=== PATIENT | male | born 1955 | race American Indian/Alaskan Native ===

== ENCOUNTER 2017-01-15 03:40 | Emergency (ER) | payer SELFPAY ==
--- NOTE | 2017-01-15 04:58 | C.PDOC ---
History Of Present Illness 61 year old male brought to ER by police after he was found sleeping intoxicated at a lightrail stop. Patient admits he is a frequent drinking and drinks almost daily. Denies any fall, trauma, or physical complaints. Time Seen by Provider: 01/15/17 03:58 Chief Complaint (Nursing): Substance Abuse History Per: Patient History/Exam Limitations: no limitations Onset/Duration Of Symptoms: Hrs Current Symptoms Are (Timing): Still Present Suicide/Self Injury Attempted (Context): None Modifying Factor(s): Alcohol Associated Symptoms: denies: Depression, Suicidal Thoughts, Suicidal Plan Involuntary Hold By: None Recent travel outside of the [place]: No Past Medical History Reviewed: Historical Data, Nursing Documentation, Vital Signs Vital Signs: Last Vital Signs Temp 98.5 F 01/15/17 06:18 Pulse 89 01/15/17 06:18 Resp 18 01/15/17 06:18 BP 121/74 01/15/17 06:18 Pulse Ox 94 L 01/15/17 06:29 - Medical History PMH: No Chronic Diseases Surgical History: No Surg Hx Family History: States: Unknown Family Hx - Social History Hx Alcohol Use: Yes Hx Substance Use: No Review Of Systems Constitutional: Negative for: Fever, Chills Gastrointestinal: Negative for: Nausea, Vomiting, Diarrhea Physical Exam - Physical Exam Appears: Non-toxic, No Acute Distress, Other (ETOH on breath, speaking in complete sentences) Skin: Normal Color, Warm, Dry Head: Atraumatic, Normacephalic Oral Mucosa: Moist Chest: Symmetrical, No Tenderness Cardiovascular: Rhythm Regular, No Murmur Respiratory: Normal Breath Sounds, No Rales, No Rhonchi, No Wheezing Gastrointestinal/Abdominal: Soft, No Tenderness Neurological/Psych: Oriented x3, Normal Speech, Normal Cognition ED Course And Treatment O2 Sat by Pulse Oximetry: 94 (Room air) Pulse Ox Interpretation: Normal Progress Note: pot alert and awake to be dishcharged after eating;. Reevaluation Time: 06:28 Reassessment Condition: Improved Medical Decision Making Medical Decision Making: pt easily aroused from sleep;speaks in full sentences and has steady gait. will d/c with med clinic and detox recommendation Disposition Counseled Patient/Family Regarding: Diagnosis, Need For Followup - Disposition Referrals: [facility] at [facility] [Outside] Disposition: HOME/ ROUTINE Disposition Time: 06:25 Condition: IMPROVED Additional Instructions: Please follow up with medical clinic. Please consider alcohol detox program. Return to ER for any worsening symptoms., Instructions: Alcohol Intoxication (ED), Abuse of Alcohol (ED) Forms: General Discharge Instructions - Clinical Impression Clinical Impression: Alcohol abuse - Scribe Statement The provider has reviewed the documentation as recorded by the Scribe Justin Acevedo All medical record entries made by the Marianaibe were at my direction and personally dictated by me. I have reviewed the chart and agree that the record accurately reflects my personal performance of the history, physical exam, medical decision making, and the department course for this patient. I have also personally directed, reviewed, and agree with the discharge instructions and disposition.
[2017-01-15 06:19] VITALS: BP 121/74; PULSE 89; RESP 18; TEMP 98.5
[2017-01-15 06:26] VITALS: O2SAT 94
== END 2017-01-15 06:50 | disposition home or self-care (01) ==
LOC: C.ER 03:40
DX: F10.10 Alcohol abuse, uncomplicated (principal); Y90.9 Presence of alcohol in blood, level not specified

== ENCOUNTER 2017-01-25 19:39 | Emergency (ER) | payer MEDICARE ==
[2017-01-25 19:52] VITALS: RESP 16
--- NOTE | 2017-01-25 22:47 | C.PDOC ---
History Of Present Illness 61 year old male BIBA for public intoxication. Denies physical complaints at this time. Time Seen by Provider: 01/25/17 21:10 Chief Complaint (Nursing): Substance Abuse History Per: Patient History/Exam Limitations: no limitations Onset/Duration Of Symptoms: Hrs Current Symptoms Are (Timing): Still Present Suicide/Self Injury Attempted (Context): None Modifying Factor(s): Alcohol Associated Symptoms: denies: Depression, Suicidal Thoughts, Suicidal Plan Involuntary Hold By: None Recent travel outside of the [place]: No Past Medical History Reviewed: Historical Data, Nursing Documentation, Vital Signs Vital Signs: Last Vital Signs Temp 98.4 F 01/25/17 22:44 Pulse 92 H 01/25/17 22:44 Resp 16 01/25/17 22:44 BP 117/69 01/25/17 22:44 Pulse Ox 94 L 01/25/17 22:49 - Medical History PMH: No Chronic Diseases Surgical History: No Surg Hx Family History: States: Unknown Family Hx - Social History Hx Alcohol Use: Yes Hx Substance Use: No Review Of Systems Constitutional: Negative for: Fever, Chills Gastrointestinal: Negative for: Nausea, Vomiting, Diarrhea Neurological: Negative for: Weakness, Numbness Physical Exam - Physical Exam Appears: Non-toxic, No Acute Distress, Other (ETOH on breath) Skin: Normal Color, Warm, Dry Head: Atraumatic, Normacephalic Oral Mucosa: Moist Chest: Symmetrical, No Tenderness Cardiovascular: Rhythm Regular, No Murmur Respiratory: Normal Breath Sounds, No Rales, No Rhonchi, No Wheezing Gastrointestinal/Abdominal: Soft, No Tenderness Neurological/Psych: Oriented x3, Normal Speech, Normal Cognition ED Course And Treatment O2 Sat by Pulse Oximetry: 94 Reevaluation Time: 00:17 Reassessment Condition: Improved (sleeping comfortably, no distress) Medical Decision Making Medical Decision Making: admitted etoh abuse Disposition - Disposition Disposition Time: 01:00 Condition: GOOD Forms: [facility] (German) - Clinical Impression Clinical Impression: Alcohol abuse - Scribe Statement The provider has reviewed the documentation as recorded by the Scribe Justin Acevedo All medical record entries made by the Scribe were at my direction and personally dictated by me. I have reviewed the chart and agree that the record accurately reflects my personal performance of the history, physical exam, medical decision making, and the department course for this patient. I have also personally directed, reviewed, and agree with the discharge instructions and disposition. Physician Patient Turnover Patient Signed Over To: Asad Patrick Handoff Comments: dispo in AM when sober
[2017-01-26 05:49] VITALS: BP 129/83; PULSE 85; TEMP 98.3; O2SAT 96
== END 2017-01-26 06:12 | disposition home or self-care (01) ==
LOC: C.ER 19:39
DX: F10.10 Alcohol abuse, uncomplicated (principal)

== ENCOUNTER 2018-04-18 00:43 | Emergency (ER) | payer MEDICARE ==
[2018-04-18 00:57] VITALS: RESP 18
--- NOTE | 2018-04-18 01:52 | C.PDOC ---
History Of Present Illness 63 year old male brought in via EMS for acute ETOH intoxication. Patient offers no complaints at this time. Time Seen by Provider: 04/18/18 01:07 Chief Complaint (Nursing): Substance Abuse History Per: Patient, EMS History/Exam Limitations: no limitations Onset/Duration Of Symptoms: Hrs Current Symptoms Are (Timing): Still Present Suicide/Self Injury Attempted (Context): None Modifying Factor(s): Alcohol Associated Symptoms: denies: Depression, Suicidal Thoughts Involuntary Hold By: None Recent travel outside of the [place]: No Past Medical History Reviewed: Historical Data, Nursing Documentation, Vital Signs Vital Signs: Last Vital Signs Temp 98.4 F 04/18/18 00:53 Pulse 80 04/18/18 00:53 Resp 18 04/18/18 00:53 BP 144/94 H 04/18/18 00:53 Pulse Ox 98 04/18/18 00:53 - Medical History PMH: Dementia Denies: Diabetes, Hepatitis, HIV, HTN, Seizures, Sexually Transmitted Disease Family History: States: Unknown Family Hx - Social History Hx Alcohol Use: Yes Hx Substance Use: No - Immunization History Hx Tetanus Toxoid Vaccination: No Hx Influenza Vaccination: No Hx Pneumococcal Vaccination: No Review Of Systems Constitutional: Negative for: Fever, Chills Cardiovascular: Negative for: Chest Pain, Palpitations Respiratory: Negative for: Cough, Shortness of Breath Gastrointestinal: Negative for: Nausea, Vomiting Genitourinary: Negative for: Dysuria, Hematuria Neurological: Negative for: Weakness, Numbness Physical Exam - Physical Exam Appears: Non-toxic, Other (ETOH on breath, no sign of injury) Skin: Normal Color, Warm, Dry Head: Atraumatic, Normacephalic Eye(s): bilateral: Normal Inspection Oral Mucosa: Moist Neck: Normal, Supple Chest: Symmetrical, No Tenderness Cardiovascular: Rhythm Regular Respiratory: Normal Breath Sounds, No Rales, No Rhonchi, No Wheezing Gastrointestinal/Abdominal: Soft, No Tenderness Extremity: Other (Moves all extremities) Neurological/Psych: Oriented x3, Normal Speech Gait: Unable To Assess ED Course And Treatment O2 Sat by Pulse Oximetry: 98 (Room air) Pulse Ox Interpretation: Normal Progress Note: Patient with acute ETOH intoxication, will due frequent neuro checks and discharge when clinically sober. 6am:On reevaluation, patient is ambulatory in the ER with steady gait, vitals are stable, will discharge home. Reassessment Condition: Improved Disposition - Disposition Referrals: Rogers Delgado MD [Primary Care Provider] - Disposition: HOME/ ROUTINE Disposition Time: 06:05 Condition: STABLE Instructions: Alcohol Use - When Is Drinking a Problem? 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 - Scribe Statement The provider has reviewed the documentation as recorded by the Scribe Justin Acevedo All medical record entries made by the Marianaibyasir were at my direction and personally dictated by me. I have reviewed the chart and agree that the record accurately reflects my personal performance of the history, physical exam, medical decision making, and the department course for this patient. I have also personally directed, reviewed, and agree with the discharge instructions and disposition.
[2018-04-18 05:42] VITALS: BP 122/82; PULSE 72; TEMP 98.8
[2018-04-18 06:04] VITALS: O2SAT 98
== END 2018-04-18 06:15 | disposition home or self-care (01) ==
LOC: SUPCPDRO 00:43 → C.ER 00:43
DX: F10.10 Alcohol abuse, uncomplicated (principal)

== ENCOUNTER 2018-06-09 00:43 | Emergency (ER) | payer MEDICARE ==
[2018-06-09 01:07] VITALS: RESP 16
--- NOTE | 2018-06-09 01:32 | C.PDOC ---
History Of Present Illness 63 year old male presents to the ED c/o head spinning after he was drinking all day today. Patient states he wants to sleep. Patient denies fever, chills, nausea, vomit, visual changes, weakness, numbness, injury, fall, trauma. Time Seen by Provider: 06/09/18 01:15 Chief Complaint (Nursing): Shortness Of Breath History Per: Patient History/Exam Limitations: intoxication Onset/Duration Of Symptoms: Hrs Current Symptoms Are (Timing): Still Present Context: Other Location Of Pain/Discomfort: Diffuse Quality Of Discomfort: "Pain" Associated Symptoms: denies: Nausea, Vomiting, Diarrhea, Urinary Symptoms Recent travel outside of the [place]: No Additional History Per: Patient Past Medical History Reviewed: Historical Data, Nursing Documentation, Vital Signs Vital Signs: Last Vital Signs Temp 98.1 F 06/09/18 00:56 Pulse 84 06/09/18 00:56 Resp 16 06/09/18 01:06 BP 136/87 06/09/18 00:56 Pulse Ox 97 06/09/18 01:06 - Medical History PMH: Asthma, Dementia Denies: Diabetes, Hepatitis, HIV, HTN, Seizures, Sexually Transmitted Disease Surgical History: No Surg Hx Family History: States: Unknown Family Hx - Social History Hx Alcohol Use: Yes Hx Substance Use: No - Immunization History Hx Tetanus Toxoid Vaccination: No Hx Influenza Vaccination: No Hx Pneumococcal Vaccination: No Review Of Systems Constitutional: Negative for: Fever, Chills Eyes: Negative for: Vision Change Cardiovascular: Negative for: Chest Pain Respiratory: Negative for: Shortness of Breath Gastrointestinal: Negative for: Nausea, Vomiting, Abdominal Pain Skin: Negative for: Rash Neurological: Positive for: Headache, Dizziness. Negative for: Weakness, Numbness Physical Exam - Physical Exam Appears: Non-toxic, No Acute Distress Skin: Warm, Dry Head: Normacephalic Eye(s): bilateral: Normal Inspection Neck: Supple Chest: Symmetrical Cardiovascular: Rhythm Regular Respiratory: No Rales, No Rhonchi, No Wheezing Gastrointestinal/Abdominal: Soft, No Tenderness, No Guarding, No Rebound Extremity: Bilateral: Atraumatic, Normal Color And Temperature, Normal ROM Neurological/Psych: Oriented x3, Normal Speech, Normal Cognition Gait: With Assistance (cane) ED Course And Treatment - Laboratory Results Result Diagrams: 06/09/18 01:42 06/09/18 01:42 O2 Sat by Pulse Oximetry: 97 (ON RA) Pulse Ox Interpretation: Normal - CT Scan/US CT head Other Rad Studies (CT/US): Read By Radiologist, Radiology Report Reviewed CT/US Interpretation: CT scan of the head. CLINICAL HISTORY: Headache. TECHNIQUE: Multiple axial CT images of the brain without IV contrast material. COMMENTS: There is normal configuration of sella turcica. There are no intra or extra-axial collections. There is no mass effect or midline shift. There is no evidence of hematoma formation. No hydrocephalus is present. The ventricles are symmetrical. No abnormal calcifications are present. There is diffuse age- appropriate cerebellar and cerebral atrophy with proportionally dilated v entricles and cortical sulci. There are bilateral periventricular and subcortical white matter hypolucencies compatible with mild chronic microvascular disease. Otherwise, no significant focal abnormalities are seen either in the posterior fossa or supratentorial compartment. Mild chronic mucosal inflammatory changes of the right maxillary sinus. IMPRESSION: 1. Age- appropriate cerebellar and cerebral atrophy. 2. Mild chronic microvascular disease. 3. No evidence of acute intracranial pathology. Thank you for your kind referral of this patient. . Electronically signed on Jun 09, 2018 3:08:51 AM EST by: Arias Curiel M.D., Certified by MARY, MSK, Neuroradiology Progress Note: Plan: - Labs. - UA Reevaluation Time: 05:40 Reassessment Condition: Improved Disposition Counseled Patient/Family Regarding: Studies Performed, Diagnosis, Need For Followup, Rx Given - Disposition Referrals: [facility] at [facility] [Outside] Disposition: HOME/ ROUTINE Disposition Time: 01:32 Condition: FAIR Prescriptions: Nitrofurantoin Macrocrystals [Macrobid] 1 cap PO BID #14 cap Instructions: Alcohol Abuse and Alcoholism (DC), Urinary Tract Infection, Adult (DC) Forms: [facility] (Bahraini) - Clinical Impression Clinical Impression: Alcohol abuse, Dementia, UTI (urinary tract infection) - Scribe Statement The provider has reviewed the documentation as recorded by the Scribe Seymour Guadalupe All medical record entries made by the Scribe were at my direction and personally dictated by me. I have reviewed the chart and agree that the record accurately reflects my personal performance of the history, physical exam, medical decision making, and the department course for this patient. I have also personally directed, reviewed, and agree with the discharge instructions and disposition.
[2018-06-09 01:45] LABS: BASO % 0.7 % (0.0-2.0); EOS % 0.6 % (0.0-4.0); HEMOGLOBIN 12.8 g/dL (12.0-18.0); LYMPH # 1.8 K/uL (1.0-4.3); LYMPH % 28.8 % (20.0-40.0); MEAN CELL VOLUME 85.7 fL (80.0-94.0); MEAN CORPUSCULAR HEMOGLOBIN 28.8 pg (27.0-31.0); MEAN CORPUSCULAR HGB CONC 33.6 g/dL (33.0-37.0); MEAN PLATELET VOLUME 9.6 fL (7.2-11.7); MONO % 16.4 % (0.0-10.0); NEUT # 3.3 K/uL (1.8-7.0); NEUT % 53.5 % (50.0-75.0); RBC 4.43 Mil/uL (4.40-5.90); RED CELL DISTRIBUTION WIDTH 16.5 % (11.5-14.5); WHITE BLOOD COUNT 6.2 K/uL (4.8-10.8)
[2018-06-09 01:57] LABS: SQUAMOUS EPITHIAL 1 /hpf (0-5); URINE BACTERIA RARE (<OCC); URINE BILIRUBIN NEGATIVE (NEGATIVE); URINE BLOOD 1+ (NEGATIVE); URINE CALCIUM OXALATE CRYSTALS OCC /hpf (<OCC); URINE CLARITY Hazy (Clear); URINE COLOR Yellow (YELLOW); URINE GLUCOSE (UA) NORMAL (Normal); URINE LEUKOCYTE ESTERASE 3+ Leu/uL (Negative); URINE PROTEIN 2+ mg/dL (NEGATIVE); URINE UROBILINOGEN NORMAL mg/dL (0.2-1.0)
[2018-06-09 02:01] LABS: ALB/GLOB RATIO 1.2 (1.0-2.1); ALBUMIN 4.5 g/dL (3.5-5.0); BLOOD UREA NITROGEN 13 mg/dL (9-20); CALCIUM 10.6 mg/dl (8.6-10.4); GFR NON-AFRICAN AMERICAN > 60
[2018-06-09 02:08] LABS: BARBITURATES, UR NEGATIVE (NEGATIVE); BENZODIAZEPINES, UR NEGATIVE (NEGATIVE); OPIATES, UR NEGATIVE (NEGATIVE); PHENCYCLIDINE, UR NEGATIVE (NEGATIVE)
[2018-06-09 02:20] LABS: ALT/SGPT 24 U/L (21-72); AST/SGOT 26 U/L (17-59)
[2018-06-09 05:51] VITALS: BP 120/82; PULSE 74; TEMP 98.2; O2SAT 98
--- NOTE | 2018-06-09 06:56 | CT ---
Date of service: 06/09/2018 PROCEDURE: CT HEAD WITHOUT CONTRAST. HISTORY: headache COMPARISON: None available. TECHNIQUE: Axial computed tomography images were obtained through the head/brain without intravenous contrast. Radiation dose: Total exam DLP = 1176.5 mGy-cm. This CT exam was performed using one or more of the following dose reduction techniques: Automated exposure control, adjustment of the mA and/or kV according to patient size, and/or use of iterative reconstruction technique. FINDINGS: HEMORRHAGE: No intracranial hemorrhage. BRAIN: No mass effect or edema. Scattered focal lucencies in the subcortical and periventricular white matter suggestive for chronic microvascular ischemic change. Generalized parenchymal atrophy. Punctate left basal ganglia lacunar infarct. VENTRICLES: Unremarkable. No hydrocephalus. CALVARIUM: Unremarkable. PARANASAL SINUSES: Mucosal thickening of the right maxillary sinus. 2 centimeter mucosal retention cyst and or polyp in the right maxillary sinus. Mild mucosal thickening of the ethmoid air cells. MASTOID AIR CELLS: Unremarkable as visualized. No inflammatory changes. OTHER FINDINGS: Punctate radiopaque density seen within the soft tissues of the anterior right frontal region of uncertain clinical etiology on series 2, image 18. IMPRESSION: No acute intracranial abnormality. Generalized parenchymal atrophy. Chronic microvascular ischemic change. Punctate left basal ganglia lacunar infarct. Sinus mucosal disease as above. If symptoms persists, consider correlation with MRI. A preliminary report was generated at 3:08 a.m. on 06/09/[address] Arias Curiel from [email or web address].
== END 2018-06-09 06:35 | disposition home or self-care (01) ==
LOC: C.ER 00:43
DX: F10.10 Alcohol abuse, uncomplicated (principal); Y90.9 Presence of alcohol in blood, level not specified; F03.90 Unspecified dementia, unspecified severity, without behavioral disturbance, psychotic disturbance, mood disturbance, and anxiety; N39.0 Urinary tract infection, site not specified
CPT/HCPCS: 70450; 80053; 81001; 82948; 83735; 84100; 85025; 99285; G0480

== ENCOUNTER 2018-09-08 02:00 | Emergency (ER) | payer MEDICARE ==
--- NOTE | 2018-09-08 02:20 | C.PDOC ---
History Of Present Illness 63 year old male presents to the ED c/o SOB, states he recently ran out of his inhaler. Patient reports he lived by himself. Patient able to speak in complete sentences, denies fever, chills, headache, CP, Palpitations, rash, weakness, numbness Time Seen by Provider: 09/08/18 02:20 Chief Complaint (Nursing): Shortness Of Breath History Per: Patient History/Exam Limitations: no limitations Onset/Duration Of Symptoms: Hrs Current Symptoms Are (Timing): Still Present Initiating Event: Out Of Medications Quality: Tightness Current Respiratory Medications: See Home Med List Recent travel outside of the [place] States: No Additional History Per: Patient Past Medical History Reviewed: Historical Data, Nursing Documentation, Vital Signs Vital Signs: Last Vital Signs Temp 98.1 F 09/08/18 02:08 Pulse 92 H 09/08/18 02:08 Resp 24 09/08/18 02:08 BP 147/80 09/08/18 02:08 Pulse Ox 97 09/08/18 02:08 - Medical History PMH: Asthma, CHF, Dementia Denies: Diabetes, Hepatitis, HIV, HTN, Seizures, Sexually Transmitted Disease Surgical History: No Surg Hx Family History: States: No Known Family Hx - Social History Hx Alcohol Use: Yes Hx Substance Use: No - Immunization History Hx Tetanus Toxoid Vaccination: No Hx Influenza Vaccination: No Hx Pneumococcal Vaccination: No Review Of Systems Constitutional: Negative for: Fever, Chills Cardiovascular: Negative for: Chest Pain Respiratory: Positive for: Shortness of Breath. Negative for: Cough, Sputum, Wheezing Gastrointestinal: Negative for: Nausea, Vomiting, Abdominal Pain Skin: Negative for: Rash Neurological: Negative for: Weakness, Numbness, Headache Physical Exam - Physical Exam Appears: Non-toxic, No Acute Distress Skin: Warm, Dry Head: Normacephalic Eye(s): bilateral: Normal Inspection Oral Mucosa: Moist Neck: Normal ROM, Supple Chest: Symmetrical Cardiovascular: Rhythm Regular Respiratory: Rales (at the bases), No Rhonchi, No Wheezing Gastrointestinal/Abdominal: Soft, No Tenderness, No Guarding, No Rebound Extremity: Capillary Refill (< 2 seconds) Extremity: Bilateral: Atraumatic, Normal Color And Temperature, Normal ROM, Other (pedal edema ) Pulses: Left Dorsalis Pedis: Normal, Right Dorsalis Pedis: Normal Neurological/Psych: Oriented x3, Normal Speech, Normal Cognition Gait: Steady (with a cane) ED Course And Treatment - Laboratory Results Result Diagrams: 09/08/18 03:28 09/08/18 03:28 ECG: Interpreted By Me, Viewed By Me ECG Rhythm: Sinus Rhythm (89), Nonspecific Changes O2 Sat by Pulse Oximetry: 97 (On RA) Pulse Ox Interpretation: Normal - Radiology CXR: Interpreted by Me, Viewed By Me CXR Interpretation: No: Infiltrates, Fracture, Pnemothorax Progress Note: Plan: - ABG. - EKG. - Labs. - CXR. - Blood culture. - UA Medical Decision Making Medical Decision Making: Upon provider reevaluation patient is feeling better, is medically stable, and requires no further treatment in the ED at this time. Patient will be discharged home with Rx for albbuterol . Counseling was provided and all questions were answered regarding diagnosis and need for follow up with the referred clinic. There is agreement to discharge plan. Return if symptoms persist or worsen. Disposition Discussed With : Harsha Patrick Comment: accepted the pt on his service and took over the care at 3:59 AM Doctor Will See Patient In The: ED Counseled Patient/Family Regarding: Studies Performed, Diagnosis - Disposition Referrals: [facility] at [facility] [Outside] [facility] [Outside] Disposition: HOSPITALIZED Disposition Time: 02:20 Condition: FAIR Additional Instructions: Please return if symptoms recur Prescriptions: Albuterol HFA [Ventolin HFA 90 mcg/actuation (8 g)] 2 puff IH [id number] #1 puff Instructions: Asthma, Adult (DC) Forms: [facility] (Thai) - POA Present On Arrival: None - Clinical Impression Clinical Impression: Asthma - Scribe Statement The provider has reviewed the documentation as recorded by the Scribe Seymour Guadalupe All medical record entries made by the Scribe were at my direction and personally dictated by me. I have reviewed the chart and agree that the record accurately reflects my personal performance of the history, physical exam, medical decision making, and the department course for this patient. I have also personally directed, reviewed, and agree with the discharge instructions and disposition.
[2018-09-08 02:46] LABS: ABG ALLEN TEST POS; ARTERIAL BLOOD GAS HCO3 24.8 mmol/L (21-28); ARTERIAL BLOOD GAS O2 SAT 95.5 % (95-98); ARTERIAL BLOOD GAS PCO2 40 mm/Hg (35-45); ARTERIAL BLOOD GAS PO2 66 mm/Hg (80-100)
[2018-09-08 03:32] LABS: BASO % 0.7 % (0.0-2.0); EOS # 0.1 K/uL (0.0-0.7); EOS % 2.9 % (0.0-4.0); HEMOGLOBIN 12.2 g/dL (12.0-18.0); LYMPH # 1.4 K/uL (1.0-4.3); LYMPH % 37.2 % (20.0-40.0); MEAN CELL VOLUME 88.3 fL (80.0-94.0); MEAN CORPUSCULAR HGB CONC 31.8 g/dL (33.0-37.0); MEAN PLATELET VOLUME 9.2 fL (7.2-11.7); MONO # 0.6 K/uL (0.0-0.8); MONO % 16.8 % (0.0-10.0); NEUT # 1.6 K/uL (1.8-7.0); NEUT % 42.4 % (50.0-75.0); NRBC % 0.1 % (0.0-2.0); RBC 4.33 Mil/uL (4.40-5.90); RED CELL DISTRIBUTION WIDTH 16.9 % (11.5-14.5); WHITE BLOOD COUNT 3.7 K/uL (4.8-10.8)
[2018-09-08 03:37] LABS: INR 1.1; PROTHROMBIN TIME 11.9 SECONDS (9.7-12.2)
[2018-09-08 03:42] LABS: ALB/GLOB RATIO 1.2 (1.0-2.1); ALBUMIN 4.2 g/dL (3.5-5.0); ALT/SGPT 17 U/L (21-72); AST/SGOT 18 U/L (17-59); BLOOD UREA NITROGEN 17 mg/dL (9-20); CALCIUM 9.9 mg/dl (8.6-10.4); GFR NON-AFRICAN AMERICAN > 60
[2018-09-08 03:54] LABS: B-TYPE NATRIURETIC PEPTIDE 36.1 pg/mL (0-900)
[2018-09-08 04:34] LABS: SQUAMOUS EPITHIAL < 1 /hpf (0-5); URINE BILIRUBIN NEGATIVE (NEGATIVE); URINE BLOOD 1+ (NEGATIVE); URINE CLARITY Clear (Clear); URINE COLOR Yellow (YELLOW); URINE GLUCOSE (UA) NORMAL (Normal); URINE LEUKOCYTE ESTERASE 1+ Leu/uL (Negative); URINE PROTEIN NEGATIVE (NEGATIVE)
[2018-09-08 06:42] VITALS: BP 124/78; PULSE 82; RESP 18; TEMP 98.3; O2SAT 95
--- NOTE | 2018-09-08 08:31 | RAD ---
Chest x-ray single frontal view HISTORY: Shortness of breath. COMPARISON: None available. Findings: Mild venous congestion. Heart size within normal limits. Tortuous aorta. Degenerative changes in the spine. Impression: Mild venous congestion.
== END 2018-09-08 05:55 | disposition home or self-care (01) ==
LOC: C.ER 02:00
DX: J45.909 Unspecified asthma, uncomplicated (principal)